=== PATIENT | male | born 1980 ===

== ENCOUNTER 2024-06-19 09:00 | Emergency (ER) | payer SELFPAY ==
[2024-06-19] MEDS ORDERED: Ketorolac Tromethamine 30 MG (1 mL) VIAL ONE (09:54)
== END 2024-06-19 11:03 | disposition home or self-care (01) ==
LOC: ERS 09:00
DX: S39.012A Strain of muscle, fascia and tendon of lower back, initial encounter (principal); F17.290 Nicotine dependence, other tobacco product, uncomplicated; X50.0XXA Overexertion from strenuous movement or load, initial encounter; Y99.0 Civilian activity done for income or pay
CPT/HCPCS: 96372; 99283; J1885